=== PATIENT | male | born 1955 | race Caucasian/White ===

== ENCOUNTER → 2021-12-11 | Outpatient (CLI) | payer MEDICARE, MEDICAID ==
--- NOTE | 2021-12-11 19:00 | Diagnostic Imaging Report ---
INDICATION: Bilateral knee pain. COMPARISON: 10/22/2021. FINDINGS: Multiple radiographic views of the bilateral knees were obtained. LEFT KNEE: There is no acute fracture or dislocation. Small suprapatellar joint effusion is noted. Osseous structures are intact. There are mild osteoarthritic changes. This consists of joint space narrowing with osteophyte formations. No unexpected radiopaque foreign bodies are seen. RIGHT KNEE: There is no acute fracture or dislocation. Osseous structures are intact. There are moderate osteoarthritic changes of the right knee. This consists of joint space narrowing, greatest involving the medial tibial femoral compartment. There is also associated sclerotic remodeling of the articular surfaces with osteophyte formations. Suprapatellar joint effusion is noted. IMPRESSION: 1. Bilateral joint effusions, but no evidence of acute fracture or dislocation of either knee. 2. Bilateral osteoarthritis, right greater than left. Dictated by: Dictated on workstation # [id number]
== END ==
LOC: ORTHO 10:58
PROVIDERS: ATTEND Orthopaedic Surgery
DX: M17.0 Bilateral primary osteoarthritis of knee (principal)
CPT/HCPCS: 73564; G0463; 99203

== ENCOUNTER 2021-12-18 05:33 | Outpatient (CLI) | payer MEDICARE, MEDICAID ==
[~2021-12-18] VITALS: Ht 177.8 cm; Wt 85.7 kg
[2021-12-18 12:24] VITALS: BP 107/72
[2021-12-18 12:53] LABS: BILIRUBIN,URINE NEGATIVE (NEGATIVE); CLARITY,URINE CLEAR; COLOR,URINE YELLOW; GLUCOSE, URINE (UA) NEGATIVE (NEGATIVE); KETONES,URINE NEGATIVE (NEGATIVE); LEUKOCYTE ESTERASE ,URINE NEGATIVE (NEGATIVE); NITRITE,URINE NEGATIVE (NEGATIVE); PH,URINE 5.5 (5-9); PROTEIN,URINE NEGATIVE (NEGATIVE)
[2021-12-18 12:54] LABS: BASOPHILS # (AUTO) 0.1 10^3/uL (0.0-0.1); BASOPHILS % (AUTO) 1 % (0-10); EOSINOPHILS # (AUTO) 0.1 10^3/uL (0.0-0.3); EOSINOPHILS % (AUTO) 1 % (0-10); HEMATOCRIT 33 % (40-54); HEMOGLOBIN 10.5 g/dL (13.3-17.7); LYMPHOCYTES # (AUTO) 2.9 10^3/uL (1.0-4.0); LYMPHOCYTES % (AUTO) 23 % (12-44); MEAN CORPUSCULAR HEMOGLOBIN 20 pg (25-34); MEAN CORPUSCULAR HGB CONC 32 g/dL (32-36); MEAN CORPUSCULAR VOLUME 64 fL (80-99); MEAN PLATELET VOLUME 10.4 fL (9.0-12.2); MONOCYTES # (AUTO) 0.8 10^3/uL (0.0-1.0); MONOCYTES % (AUTO) 7 % (0-12); NEUTROPHILS # (AUTO) 8.9 10^3/uL (1.8-7.8); NEUTROPHILS % (AUTO) 69 % (42-75); PLATELET COUNT 278 10^3/uL (130-400); WHITE BLOOD COUNT 12.9 10^3/uL (4.3-11.0)
[2021-12-18 13:03] LABS: PROTHROMBIN TIME PATIENT 13.8 SEC (12.2-14.7)
[2021-12-18 13:10] LABS: BACTERIA,URINE NEGATIVE /HPF; CALCIUM 9.1 MG/DL (8.5-10.1); CREATININE SERUM 1.26 MG/DL (0.60-1.30); POTASSIUM 3.9 MMOL/L (3.6-5.0)
--- NOTE | 2021-12-18 15:43 | Diagnostic Imaging Report ---
INDICATION: Preop right knee arthroplasty, degenerative joint disease PA and lateral chest Heart size and pulmonary vascularity are normal. Lungs are clear. There are no effusions or pneumothoraces. IMPRESSION: No acute abnormalities in the chest. Dictated by: Dictated on workstation # [id number]
[2021-12-18] MEDS ORDERED: FEBU40TA PO (16:17)
[2021-12-18] MEDS ORDERED: CHOL10007 PO (16:17)
[2021-12-18] MEDS ORDERED: ASPI-992 PO (16:17)
[2021-12-18] MEDS ORDERED: GBPN600T PO (16:17)
[2021-12-18] MEDS ORDERED: TRZ50T PO (16:17)
[2021-12-18] MEDS ORDERED: OMEP20CA18 PO (16:17)
[2021-12-18] MEDS ORDERED: PRED5TAB PO (16:17)
[2021-12-18] MEDS ORDERED: LISI2.5T13 PO (16:17)
[2021-12-18] MEDS ORDERED: BUPR150T24 PO (16:17)
[2021-12-18] MEDS ORDERED: TERA2CAP4 PO (16:17)
== END 2021-12-18 16:22 ==
LOC: PREOP 05:33
PROVIDERS: ATTEND Orthopaedic Surgery
DX: Z01.818 Encounter for other preprocedural examination (principal); M17.11 Unilateral primary osteoarthritis, right knee
CPT/HCPCS: 36415; 71046; 80048; 81000; 85025; 85610; 85730; 87081; 93005

== ENCOUNTER → 2022-01-03 | Outpatient (CLI) | payer MEDICARE, MEDICAID ==
[~2022-01-03] MED LIST: ASPI-992 PO; BUPR150T24 PO; CHOL10007 PO; FEBU40TA PO; GBPN600T PO; LISI2.5T13 PO; OMEP20CA18 PO; PRED5TAB PO; TERA2CAP4 PO; TRZ50T PO
== END ==
LOC: ORTHO 11:30
PROVIDERS: ATTEND Orthopaedic Surgery
DX: M17.0 Bilateral primary osteoarthritis of knee (principal)

== ENCOUNTER 2022-02-05 09:36 | Outpatient (RCR) | payer MEDICARE, MEDICAID ==
[2022-02-05 11:20] LABS: ABSOLUTE RETIC # 118 10e9/uL (24-90); BASOPHILS # (AUTO) 0.1 10^3/uL (0.0-0.1); BASOPHILS % (AUTO) 0 % (0-10); EOSINOPHILS # (AUTO) 0.1 10^3/uL (0.0-0.3); EOSINOPHILS % (AUTO) 1 % (0-10); HEMATOCRIT 35 % (40-54); HEMOGLOBIN 11.1 g/dL (13.3-17.7); LYMPHOCYTES % (AUTO) 15 % (12-44); MEAN CORPUSCULAR HEMOGLOBIN 20 pg (25-34); MEAN CORPUSCULAR HGB CONC 32 g/dL (32-36); MEAN CORPUSCULAR VOLUME 64 fL (80-99); MEAN PLATELET VOLUME 10.1 fL (9.0-12.2); MONOCYTES # (AUTO) 0.9 10^3/uL (0.0-1.0); MONOCYTES % (AUTO) 7 % (0-12); NEUTROPHILS # (AUTO) 9.7 10^3/uL (1.8-7.8); NEUTROPHILS % (AUTO) 77 % (42-75); PLATELET COUNT 298 10^3/uL (130-400); RETICULOCYTE % 2.17 % (0.50-2.40); WHITE BLOOD COUNT 12.7 10^3/uL (4.3-11.0)
== END 2022-02-13 | disposition home or self-care (01) ==
LOC: ONC 09:36
PROVIDERS: ATTEND Internal Medicine Hematology & Oncology
DX: D64.9 Anemia, unspecified (principal)
CPT/HCPCS: 82607; 82728; 83540; 83550; 83615; 85025; 85045; G0463; 36415; 99204

== ENCOUNTER 2022-05-08 09:55 | Outpatient (RCR) | payer MEDICARE, MEDICAID ==
[2022-05-08 10:11] LABS: BASOPHILS # (AUTO) 0.1 10^3/uL (0.0-0.1); BASOPHILS % (AUTO) 1 % (0-10); EOSINOPHILS # (AUTO) 0.4 10^3/uL (0.0-0.3); EOSINOPHILS % (AUTO) 3 % (0-10); HEMATOCRIT 34 % (40-54); HEMOGLOBIN 10.7 g/dL (13.3-17.7); LYMPHOCYTES # (AUTO) 3.6 10^3/uL (1.0-4.0); LYMPHOCYTES % (AUTO) 28 % (12-44); MEAN CORPUSCULAR HEMOGLOBIN 20 pg (25-34); MEAN CORPUSCULAR HGB CONC 32 g/dL (32-36); MEAN CORPUSCULAR VOLUME 62 fL (80-99); MEAN PLATELET VOLUME 9.8 fL (9.0-12.2); MONOCYTES # (AUTO) 1.2 10^3/uL (0.0-1.0); MONOCYTES % (AUTO) 9 % (0-12); NEUTROPHILS # (AUTO) 7.9 10^3/uL (1.8-7.8); NEUTROPHILS % (AUTO) 60 % (42-75); PLATELET COUNT 263 10^3/uL (130-400); WHITE BLOOD COUNT 13.2 10^3/uL (4.3-11.0)
== END 2022-05-14 | disposition home or self-care (01) ==
LOC: ONC 09:55
PROVIDERS: ATTEND Internal Medicine Hematology & Oncology
DX: D64.9 Anemia, unspecified (principal)
CPT/HCPCS: 36415; 82728; 83020; 83540; 83550; 85025

== ENCOUNTER → 2022-05-08 | Outpatient (CLI) | payer MEDICARE, MEDICAID | LOC: ORTHO 13:07 | PROVIDERS: ATTEND Orthopaedic Surgery | DX: Z01.818 Encounter for other preprocedural examination (principal); M17.0 Bilateral primary osteoarthritis of knee | CPT/HCPCS: 99213 ==

== ENCOUNTER → 2022-05-09 | Outpatient (CLI) | payer MEDICARE, MEDICAID ==
--- NOTE | 2022-05-09 09:36 | Diagnostic Imaging Report ---
Exam: CT right knee without contrast. Date: May 09, 2022. Indication: 66-year-old male, chronic right knee pain. Surgical planning. Comparison: Bilateral knee radiographs December 11, 2021. Technique: Axial CT images of the knee without contrast were obtained. Coronal and sagittal reformats were obtained and provided. Axial CT images at the level of the hip and ankle were also obtained for measurements of femoral version and tibial torsion and surgical planning. All CT scans use one or more of the following dose optimizing techniques: automated exposure control, MA and/or KvP adjustment based on patient size and exam type or iterative reconstruction. Findings: There is diverticulosis without evidence of acute diverticulitis. There is severe medial and patellofemoral compartment joint space loss. There are tricompartmental osteophytes including central osteophytes associated with all 3 compartments. There is a moderate to large knee joint effusion. There is no acute fracture. There is no aggressive bone lesion. Impression: 1. Severe tricompartmental osteoarthritis of the right knee with moderate to large knee joint effusion most notably involving the medial and patellofemoral compartments. Dictated by: Dictated on workstation # [id number]
== END ==
LOC: RAD 07:37
PROVIDERS: ATTEND Orthopaedic Surgery
DX: M17.11 Unilateral primary osteoarthritis, right knee (principal); M25.461 Effusion, right knee
CPT/HCPCS: 73700

== ENCOUNTER 2022-06-03 05:30 | Outpatient (CLI) | payer MEDICARE, MEDICAID ==
[~2022-06-03] VITALS: Ht 177.8 cm; Wt 89.8 kg
[2022-06-03 09:00] VITALS: BP 106/61
[2022-06-03 09:11] LABS: BASOPHILS # (AUTO) 0.1 10^3/uL (0.0-0.1); BASOPHILS % (AUTO) 1 % (0-10); EOSINOPHILS # (AUTO) 0.5 10^3/uL (0.0-0.3); EOSINOPHILS % (AUTO) 5 % (0-10); HEMATOCRIT 35 % (40-54); HEMOGLOBIN 11.3 g/dL (13.3-17.7); LYMPHOCYTES % (AUTO) 27 % (12-44); MEAN CORPUSCULAR HEMOGLOBIN 20 pg (25-34); MEAN CORPUSCULAR HGB CONC 32 g/dL (32-36); MEAN CORPUSCULAR VOLUME 62 fL (80-99); MONOCYTES % (AUTO) 9 % (0-12); NEUTROPHILS # (AUTO) 6.4 10^3/uL (1.8-7.8); NEUTROPHILS % (AUTO) 59 % (42-75); PLATELET COUNT 277 10^3/uL (130-400)
[2022-06-03 09:26] LABS: BILIRUBIN,URINE NEGATIVE (NEGATIVE); CLARITY,URINE CLEAR; COLOR,URINE YELLOW; GLUCOSE, URINE (UA) NEGATIVE (NEGATIVE); KETONES,URINE NEGATIVE (NEGATIVE); LEUKOCYTE ESTERASE ,URINE NEGATIVE (NEGATIVE); NITRITE,URINE NEGATIVE (NEGATIVE); PH,URINE 6.5 (5-9); PROTEIN,URINE TRACE (NEGATIVE)
[2022-06-03 09:26] LABS: CALCIUM 9.8 MG/DL (8.5-10.1); CREATININE SERUM 1.32 MG/DL (0.60-1.30); POTASSIUM 3.8 MMOL/L (3.6-5.0)
[2022-06-03 09:34] LABS: SMEAR SCAN COMMENT YES
[2022-06-03 09:59] LABS: BACTERIA,URINE NEGATIVE /HPF; WBC,URINE RARE /HPF
== END 2022-06-03 10:08 ==
LOC: PREOP 05:30
PROVIDERS: ATTEND Orthopaedic Surgery
DX: Z01.818 Encounter for other preprocedural examination (principal); M17.11 Unilateral primary osteoarthritis, right knee
CPT/HCPCS: 36415; 80048; 81000; 85025; 87081

== ENCOUNTER 2022-06-10 06:04 | Day surgery (SDC) | payer MEDICARE, MEDICAID ==
[2022-06-10] VITALS (12 sets, daily range): BP systolic 107–136; BP diastolic 67–82
[~2022-06-10] VITALS: Ht 177.8 cm; Wt 89.8 kg
[2022-06-10] MEDS: LACTATED RINGERS 1,000 ML IV PRN ×2 (06:22→07:55)
[2022-06-10] MEDS ORDERED: ceFAZolin INJECTION 2,000 MG in NS (IVPB) 50 ML IV ONE (06:30)
[2022-06-10] MEDS ORDERED: CATHETER FLUSH 10 ML SYR IVP PRN (06:30)
[2022-06-10] MEDS ORDERED: ROPIVACAINE 5MG/ML 30ML VIAL ONE (06:39)
[2022-06-10] MEDS ORDERED: MIDAZOLAM 2 MG/2 ML (VERSED) VIAL ONE (06:39)
[2022-06-10] MEDS ORDERED: LIDOCAINE PF 2% 5 ML (XYLOCAINE) VIAL ONE ×2 (06:39→07:00)
[2022-06-10] MEDS ORDERED: proPOfol 200 MG/20 ML (DIPRIVAN) VIAL IV ONE (07:00)
[2022-06-10] MEDS ORDERED: fentaNYL INJ 100 MCG/2 ML AMP ONE ×2 (07:00→09:43)
[2022-06-10] MEDS ORDERED: ONDANSETRON 4 MG/2 ML (SDV) Z0FRAN ONE (07:00)
[2022-06-10] MEDS ORDERED: GLYCOPYRROLATE 0.2 MG/ML (ROBINUL) 2 ML VIAL ONE (07:00)
[2022-06-10] MEDS ORDERED: NEOSTIGMINE (BLOXIVERZ ) 1 MG/1ML 10 ML VIAL ONE (07:02)
[2022-06-10] MEDS ORDERED: TRANEXAMIC ACID 100 MG/ML 10 ML INJECTION ONE (07:38)
[2022-06-10] MEDS ORDERED: PHENYLEPHRINE 100 MCG/ML 10 ML (ANESTHESIA) SYR ONE (07:44)
[2022-06-10] MEDS ORDERED: SEVOFLURANE (ULTANE) 15 ML INHAL SOLN ONE (09:46)
--- NOTE | 2022-06-10 10:11 | Operative Report - Ortho ---
Operative Report Surgeon (s)/Fpga Design Engineer (s) Surgeon MARC HAND MD Fpga Design Engineer n/a Pre-Operative Diagnosis RIGHT KNEE PRIMARY OSTEOARTHRITIS Post-Operative Diagnosis same Operative Report Date of Procedure: Jun 10, 2022 Name of Procedure Performed: Robotic Assisted Right Total Knee Arthroplasty Description & Findings After obtaining informed consent and marking the patient in the preoperative holding area, the patient did receive IV antibiotics. Patient was taken to the operating room and anesthesia was induced. Surgical timeout was taken. The right lower extremity was prepped and draped in the usual sterile fashion. Incision was made and carried down to fascia. Arthrotomy was performed on the medial side of the patella. Patella was retracted laterally and knee was flexed. Found to have circumferential osteophtye around the distal femur as well as exposed bone in the medial compartment. ACL and anterior horns of the menisci were removed. 3.2 mm pins were placed in the medial femoral condyle for the femoral array and checkpoint was placed next to the pins. 3.2 mm pins were placed in the proximal tibia and checkpoint was placed there as well. Arrays were placed and tightened into position. The femur and tibia were then registered. Osteophytes were removed. The knee was then tensioned with varus and valgus stress in extension and flexion. Measurements were captured and adjustments were made to the preoperative plan to balance the flexion and extension gaps at 18 mm. Robotic arm was brought into position and all femoral cuts as well as the tibial cut were performed. Bone blocks were removed. [place]ina staff research scientist was placed and the remainder of the mensici as well as posterior osteophytes were removed. The knee was trialed with a size 5 femur and a size 6 tibia with a 9 mm poly trial. It was found to come out to full extension and flexed beyond 120 degrees. It was stable to varus and valgus stress throughout its range of motion. This was accepted. Knee was brought out into extension and the patella was prepared for an inset patellar button. Osteophytes were removed from around the perimeter of the patella. Patella tracked well through the trochlear groove of the femur. Lug holes were drilled in the distal femur. Trial implants were removed. Tibial tray was pinned and punched. Tibial press fit guide was placed and holes were drilled. The cut bone surfaces were lavaged with pulsatile normal saline. Implants were opened and assembled on the back table. A size 6 press fit tibial component was impacted into place. A size 5 press fit femoral component was impacted into place. Tibial tray was lavaged with saline. A 9 mm thick polyethylene component was locked into placed and the locking mechanism was checked. Knee was brought into extension. Press fit patella component was clamped into place. Betadine soak was performed and then, the knee was irrigated with normal saline. The knee was once again trialed; found to come to full extension, flexed beyond 120 degrees, and was stable to varus and valgus stress. Tourniquet was dropped and electrocautery was used for hemostasis. Fascial layer was closed with #2 Stratafix. The subcutaneous layer was closed with 2-0 Vicryl. The skin was c losed with a running subcuticular 3-0 V-loc. Wound was dressed with steri- strips, xeroform, 4x4s, ABD, webril, and LIYAH wrap. Patient tolerated the procedure well and was stable to the recovery room. Anesthesia Type General Estimated Blood Loss 100 ml Specimen(s) collected/removed None MARC HAND MD Jun 10, 2022 10:11
[2022-06-10] MEDS ORDERED: MILK OF MAGNESIA 400 MG/5 ML 30 ML UDC PO PRN (10:15)
[2022-06-10] MEDS ORDERED: morphine INJ 10 MG/ML 1ML (SYR OR VIAL) IVP ONE (10:15)
[2022-06-10] MEDS ORDERED: ONDANSETRON 4 MG/2 ML (SDV) Z0FRAN IVP PRN (10:15)
[2022-06-10] MEDS ORDERED: ACETAMINOPHEN 500 MG TAB (TYLENOL) PO PRN (10:15)
[2022-06-10] MEDS ORDERED: ONDANSETRON 4 MG/2 ML (SDV) Z0FRAN IV PRN (10:15)
[2022-06-10] MEDS ORDERED: HYDROmorphone 2 MG/ML VIAL (DILAUDID) IV ONE (10:15)
[2022-06-10] MEDS ORDERED: BISACODYL 5 MG (DULCOLAX) TABLET PO PRN (10:15)
[2022-06-10] MEDS ORDERED: morphine INJ 10 MG/ML 1ML (SYR OR VIAL) ONE (10:18)
--- NOTE | 2022-06-10 10:57 | Diagnostic Imaging Report ---
Indication: Right knee surgery AP and lateral views of right knee are obtained. Overlying material limits fine bony detail however total knee arthroplasty device appears to be in good position. There is no evidence of fracture. No malalignment is seen. There is gas and fluid in the knee joint. Impression: No evidence of immediate complication post recent total right knee arthroplasty. Dictated by: Dictated on workstation # [id number]
[2022-06-10] MEDS: NS IV 1000 ML 1,000 ML IV SCH ×2 (11:38→12:07)
[2022-06-10] MEDS ORDERED: GABAPENTIN 600 MG (NEURONTIN) TAB PO SCH (13:00)
[2022-06-10] MEDS: morphine INJ 4 MG/ML 1 ML (VIAL/SYRINGE) IVP PRN ×3 (13:50→23:53)
--- NOTE | 2022-06-10 13:53 | Physical Therapy Evaluation ---
PT Evaluation-General Medical Diagnosis Admission Date June 10, 2022 Medical Diagnosis: right knee OA Onset Date: Jun 10, 2022 Therapy Diagnosis Therapy Diagnosis: impaired mobility Precautions Precautions/Isolations: Standard Precautions Referral Physician: Te Reason for Referral: Evaluation/Treatment Medical History Current History s/p elective right TKR Reviewed History: Yes Social History Home: Single Level Prior Prior Level of Function SCALE: Activities may be completed with or without assistive devices. 1-Pfyqcqanyy-tbysljr completes the activity by him/herself with no assistance from a helper. 5-Set-up or Clean-up Assistance-helper sets up or cleans up; patient completes activity. [place] assists only prior to or following the activity. 4-Supervision or Touching Assistance-helper provides verbal cues and/or touching/steadying and/or contact guard assistance as patient completes activity. Assistance may be provided throughout the activity or intermittently. 3-Partial/Moderate Assistance-helper does LESS THAN HALF the effort. [place] lifts, holds or supports trunk or limbs, but provides less than half the effort. 2-Substantial/Maximal Assistance-helper does MORE THAN HALF the effort. [place] lifts or holds trunk or limbs and provides more than half the effort. 3-Kskmxgxuy-gquoxt does ALL the effort. Patient does none of the effort to complete the activity. Or, the assistance of 2 or more helpers is required for the patient to complete the activity. If activity was not attempted, code reason: 7-Patient Refused. 9-Not Applicable-not attempted and the patient did not perform the activity before the current illness, exacerbation or injury. 10-Not Attempted due to Environmental Limitations-(lack of equipment, weather restraints, etc.). 88-Not Attempted due to Medical Conditions or Safety Concerns. Bed Mobility: 6 Transfers (B,C,W/C): 6 Gait: 6 Stairs: 6 Indoor Mobility (Ambulation): Independent Stairs: Independent Prior Devices Use: None PT Evaluation-Current Subjective Patient rates right knee pain 8/10 with RN present to issue pain medication Pain Numeric Pain Scale: 8 Location: Right Location Body Site: Knee Pain Description: Acute Objective Patient Orientation: Normal For Age Attachments: Oxygen, Doyle Catheter, Polar Pack, IV ROM/Strength ROM Lower Extremities left LE WFL/right knee AROM 0-70 degrees Strength Lower Extremities left LE 5/5; right LE 4-/5 grossly Integumentary/Posture Bowel Incontinence: No Bladder Incontinence: Doyle Cath Posture WFL Neuromuscular (Tone, Coordination, Reflexes) grossly intact Sensory Vision: Functional Hearing: Impaired Transfers Lying to Sitting/Side of Bed(Q: 4 Sit to Stand (QC): 4 Chair/Rnn-fu-Lyhsx Xfer(QC): 4 Gait Mode of Locomotion: Walk Anticipated Mode of Locomotion: Walk Walk 10 feet (QC): 4 Walk 50 ft with 2 Turns(QC): 4 Walk 150 ft (QC): 4 Distance: 150' Gait Assistive Device: FWW Comments/Gait Description slow, antalgic Balance Sitting Static: Normal Sitting Dynamic: Normal Standing Static: Fair Standing Dynamic: Fair Assessment/Needs Patient will benefit from skilled PT to address functional strength and mobility to improve current LOF to safely return to home at maximum LOF. Rehab Potential: Fair PT Bike Designer Goals Half-Way Goals PT Bike Designer Goals Time Frame: Jun 22, 2022 Roll Left & Right (QC): 6 Sit to Lying (QC): 6 Lying-Sitting on Side/Bed(QC): 6 Sit to Stand (QC): 6 Chair/Psi-ss-Xqcix Xfer(QC): 6 Toilet Transfer (QC): 6 Walk 10 feet (QC): 6 Walk 50ft with 2 Turns (QC): 6 Walk 150 ft (QC): 6 PT Plan Problem List Problem List: Activity Tolerance, Functional Strength, Safety, Gait, Transfer, ROM Treatment/Plan Treatment Plan: Continue Plan of Care Treatment Plan: Education, Functional Activity Anali, Functional Strength, Gait, Safety, Therapeutic Exercise, Transfers Treatment Duration: Jun 22, 2022 Frequency: 11 times per week Estimated Hrs Per Day: .5 hour per day Patient and/or Family Agrees t: Yes Time Time In: 1320 Time Out: 1341 DATE: Jun 10, 2022 Total Billed Treatment Time: 21 Total Billed Treatment 1 visit EVMod 21 min CLINTON SANTOYO PT Jun 10, 2022 13:53
[2022-06-10] MEDS ORDERED: PATIENT MAY USE OWN MED,SINGLE MED PO SCH (15:15)
[2022-06-10] MEDS: ceFAZolin INJECTION 2,000 MG in NS (IVPB) 50 ML IV SCH (18:05)
[2022-06-10] MEDS: ASPIRIN E.C. 81 MG (ECOTRIN) TAB PO SCH (18:05)
[2022-06-10] MEDS: TERAZOSIN 1 MG CAP (HYTRIN) PO SCH (20:37)
[2022-06-10] MEDS: CELECOXIB 100 MG (CeleBREX) CAP PO SCH (20:37)
[2022-06-10] MEDS: traZODone 50 MG (DESYREL) TAB PO SCH (20:37)
[2022-06-10] MEDS: GABAPENTIN 600 MG (NEURONTIN) TAB PO SCH (20:37)
[2022-06-10] MEDS: lisINopril 5 MG (PRINIVIL) TABLET PO SCH (20:38)
[2022-06-10] MEDS: DOCUSATE SODIUM 100 MG (COLACE) CAP PO SCH (20:38)
[2022-06-10] MEDS ORDERED: PANTOPRAZOLE 20 MG TABLET (PROTONIX) PO ONE (21:00)
[2022-06-10] MEDS ORDERED: traZODone 50 MG (DESYREL) TAB PO SCH (21:00)
[2022-06-10] MEDS ORDERED: ceFAZolin INJECTION 2,000 MG in NS (IVPB) 50 ML IV SCH (21:00)
[2022-06-10] MEDS: CALCIUM CARBONATE 500 MG (TUMS) TAB.CHEW PO PRN ×2 (21:10→23:53)
[2022-06-11] MEDS: ceFAZolin INJECTION 2,000 MG in NS (IVPB) 50 ML IV SCH (01:23)
[2022-06-11 04:00] VITALS: BP 100/64
[2022-06-11 05:13] LABS: HEMOGLOBIN 9.3 g/dL (13.3-17.7)
[2022-06-11] MEDS: CALCIUM CARBONATE 500 MG (TUMS) TAB.CHEW PO PRN ×2 (05:21→16:28)
[2022-06-11] MEDS: MULTIVIT W/MINERALS TAB (THERAGRAN M) PO SCH (05:21)
[2022-06-11] MEDS ORDERED: predniSONE 5 MG TAB PO PRN (07:00)
[2022-06-11 07:45] VITALS: BP 109/58
[2022-06-11] MEDS: FEBUXOSTAT 40 MG TABLET PO SCH (08:01)
[2022-06-11] MEDS: PANTOPRAZOLE 20 MG TABLET (PROTONIX) PO SCH ×2 (08:02→08:21)
[2022-06-11] MEDS: DOCUSATE SODIUM 100 MG (COLACE) CAP PO SCH ×3 (08:02→19:50)
[2022-06-11] MEDS: CELECOXIB 100 MG (CeleBREX) CAP PO SCH ×2 (08:02→19:50)
[2022-06-11] MEDS: buPROPion SR 150 MG (WELLBUTRIN SR) TAB PO SCH (08:02)
[2022-06-11] MEDS: ASPIRIN E.C. 81 MG (ECOTRIN) TAB PO SCH ×3 (08:02→17:16)
[2022-06-11] MEDS: GABAPENTIN 600 MG (NEURONTIN) TAB PO SCH ×3 (08:03→19:50)
[2022-06-11] MEDS: morphine INJ 4 MG/ML 1 ML (VIAL/SYRINGE) IVP PRN ×2 (08:06→16:26)
--- NOTE | 2022-06-11 08:16 | Anesthesia-General Post-Op ---
General Patient Condition Mental Status/LOC: Same as Preop Cardiovascular: Satisfactory Nausea/Vomiting: Absent Respiratory: Satisfactory Pain: Controlled Complications: Absent Post Op Complications Complications None Follow Up Care/Instructions Patient Instructions None needed. Anesthesia/Patient Condition Patient Condition Patient is doing well, no complaints, stable vital signs, no apparent adverse anesthesia problems. No complications reported per nursing. ERNESTINA TREVINO CRNA Jun 11, 2022 08:16
[2022-06-11] MEDS ORDERED: lisINopril 5 MG (PRINIVIL) TABLET PO SCH (09:00)
[2022-06-11] MEDS ORDERED: NON-FORMULARY MEDICATION 1 EA EA (Terazosin HCl 2 MG) PO SCH (09:00)
[2022-06-11] MEDS ORDERED: NON-FORMULARY MEDICATION 1 EA EA (Bupropion HCl (Bupropion Xl) 150 MG) PO SCH (09:00)
[2022-06-11] MEDS ORDERED: NON-FORMULARY MEDICATION 1 EA EA (Lisinopril 2.5 MG) PO SCH (09:00)
[2022-06-11] MEDS ORDERED: OMEPRAZOLE 20 MG (PriLOSEC) CAP NON-FORMULARY PO SCH (09:00)
--- NOTE | 2022-06-11 10:36 | Progress Note - Ortho ---
Progress Note Subjective Date of Exam 06/11/22 Chief Complaint POD #1 R TKA HPI/Events since last exam having some difficulty with pain, some trouble with N/V, has been up and out of bed Review of Systems - Allergies: Coded Allergies: allopurinol (Verified Allergy, Unknown, RASH, 06/03/22) Home Meds Reported Medications Cholecalciferol (Vitamin D3) (Vitamin D3) 25 Mcg (1000 Unit) Capsule, 25 MCG PO DAILY, CAP 12/18/21 Febuxostat (Uloric) 40 Mg Tablet, 40 MG PO HS, TAB 12/18/21 Trazodone HCl (Trazodone HCl) 50 Mg Tablet, 100 MG PO HS, TAB TAKES 2 (50MG) TABS 12/18/21 Terazosin HCl (Terazosin HCl) 2 Mg Capsule, 4 MG PO HS, CAP TAKES 2 (2MG) CAPS 12/18/21 Prednisone (Prednisone) 5 Mg Tablet, 5 MG PO DAILY PRN for GOUT FLARE, TAB 12/18/21 Omeprazole (Omeprazole) 20 Mg Capsule.dr, 20 MG PO DAILY, CAP 12/18/21 Lisinopril (Lisinopril) 2.5 Mg Tablet, 2.5 MG PO HS, TAB 12/18/21 Gabapentin (Gabapentin) 600 Mg Tablet, 1200 MG PO BID, TAB TAKES 2 (600MG) TABS 12/18/21 Aspirin/Acetaminophen/Caffeine (Excedrin Extra Strength Caplet) 250 Mg-250 Mg-65 Mg Tablet, 1-2 EACH PO Q8H PRN for HEADACHE, TAB 12/18/21 Bupropion HCl (Bupropion Xl) 150 Mg Tab.er.24h, 150 MG PO DAILY, TAB 12/18/21 Objective Exam R Knee: Dressing C/D/I, +DF of ankle, no s/s of DVT Vital Signs Vital Signs Date Time Temp Pulse Resp B/P (MAP) Pulse Ox O2 Delivery O2 Flow Rate FiO2 06/11/22 08:00 97 Room Air 06/11/22 07:45 36.5 74 20 109/58 (75) 97 Room Air 06/11/22 04:00 37.4 71 18 100/64 (76) 95 Room Air 06/10/22 23:39 37.3 82 18 107/67 (80) 93 Room Air 3/27/23 20:00 36.9 76 18 136/77 (96) 96 Room Air 06/10/22 20:00 Room Air 06/10/22 16:57 36.6 77 18 132/82 (99) 95 Room Air 06/10/22 11:15 36.3 77 18 134/73 (93) 95 Nasal Cannula 2.00 06/10/22 11:05 Room Air 06/10/22 11:00 36.1 16 124/72 (89) 94 Room Air 06/10/22 10:50 Nasal Cannula 2.00 06/10/22 10:50 16 120/68 (85) 92 Nasal Cannula 2.00 06/10/22 10:40 18 130/70 (90) 96 2.00 06/10/22 10:35 Nasal Cannula 4.00 I & O 06/11/22 07:00 Intake Total 3700 ml Output Total 1735 ml Balance 1965 ml Lab Results Laboratory Tests 06/11/22 05:05: Hemoglobin 9.3L, Hematocrit 29L Imaging 2 views of the right knee dated 06/10/22 were reviewed from PACS and demonstrated total knee arthroplasty with components in good alignment and no evidence of complication Assessment and Plan Assessment Right Knee Primary Osteoarthritis s/p TKA Problem List Right Knee Primary Osteoarthritis s/p TKA Plan PT/OT DVT Prophylaxis Home with Home health tomorrow Final Diagonsis Right Knee Primary Osteoarthritis s/p TKA Level of the visit: Level 3 (global) MARC HAND MD Jun 11, 2022 10:36
--- NOTE | 2022-06-11 10:47 | Physical Therapy Daily Note ---
PT Daily Note-Current Subjective Patient agrees to PT. Pain Numeric Pain Scale: 7 Location: Right Location Body Site: Knee Pain Description: Acute Comment: with meds issued Section J - Health Conditions 1. Rarely or not at all 2. Occasionally 3. Frequently 4. Almost constantly 8. Unable to answer Pain Effect on Sleep: 2 Pain Interference with Therapy: 1 Pain Interference w/Day-to-Day: 2 Mental Status Patient Orientation: Normal For Age Transfers SCALE: Activities may be completed with or without assistive devices. 3-Crqwxwmotc-hxqucnq completes the activity by him/herself with no assistance from a helper. 5-Set-up or Clean-up Assistance-helper sets up or cleans up; patient completes activity. [place] assists only prior to or following the activity. 4-Supervision or Touching Assistance-helper provides verbal cues and/or t ouching/steadying and/or contact guard assistance as patient completes activity. Assistance may be provided throughout the activity or intermittently. 3-Partial/Moderate Assistance-helper does LESS THAN HALF the effort. [place] lifts, holds or supports trunk or limbs, but provides less than half the effort. 2-Substantial/Maximal Assistance-helper does MORE THAN HALF the effort. [place] lifts or holds trunk or limbs and provides more than half the effort. 5-Egyzqmzxt-orrmvk does ALL the effort. Patient does none of the effort to complete the activity. Or, the assistance of 2 or more helpers is required for the patient to complete the activity. If activity was not attempted, code reason: 7-Patient Refused. 9-Not Applicable-not attempted and the patient did not perform the activity before the current illness, exacerbation or injury. 10-Not Attempted due to Environmental Limitations-(lack of equipment, weather restraints, etc.). 88-Not Attempted due to Medical Conditions or Safety Concerns. Lying to Sitting/Side of Bed(Q: 6 Sit to Stand (QC): 6 Chair/Msq-hw-Dqdgh Xfer(QC): 6 Gait Training Distance: 300' Walk 10 feet (QC): 5 Walk 50 ft with 2 Turns(QC): 5 Walk 150 ft (QC): 5 Gait Assistive Device: FWW VC's for heel/toe gait sequence right LE with knee flexion Exercises Supine Ex: Ankle pumps, Quad Set, Heel Slides, Straight leg raise Supine Reps: 15 Seated Therapy Exercises: Long arc quads Seated Reps: 15 Assessment Patient improving with treatment plan. Right knee flexion AROM 0-90 degrees. Patient up in recliner with needs met. PT instructed patient and RN for patient to ambulate PRN in hallway independently. Both voice understanding. PT Surplus Property Disposal Agent Goals Surplus Property Disposal Agent Goals PT Surplus Property Disposal Agent Goals Time Frame: Jun 22, 2022 Roll Left & Right (QC): 6 Sit to Lying (QC): 6 Lying-Sitting on Side/Bed(QC): 6 Sit to Stand (QC): 6 Chair/Bpr-ix-Yrxnn Xfer(QC): 6 Toilet Transfer (QC): 6 Walk 10 feet (QC): 6 Walk 50ft with 2 Turns (QC): 6 Walk 150 ft (QC): 6 PT Plan Treatment/Plan Treatment Plan: Continue Plan of Care Treatment Plan: Education, Functional Activity Anali, Functional Strength, Gait, Safety, Therapeutic Exercise, Transfers Treatment Duration: Jun 22, 2022 Frequency: 11 times per week Estimated Hrs Per Day: .5 hour per day Patient and/or Family Agrees t: Yes Time Time In: 930 Time Out: 954 DATE: Jun 11, 2022 Total Billed Treatment Time: 24 Total Billed Treatment 1 visit EX 10 min GT 14 min CLINTON SANTOYO PT Jun 11, 2022 10:47
--- NOTE | 2022-06-11 11:05 | Occupational Ther Daily Note ---
OT Current Status-Daily Note Subjective UP in recliner, c/o of acid reflux, agreeable to OT Mental Status/Objective Patient Orientation: Person, Place, Time, Situation, Normal For Age Attachments: IV (port only) ADL-Treatment Therapy Code Descriptions/Definitions Functional [place] Measure: 0=Not Assessed/NA 4=Minimal Assistance 1=Total Assistance 5=Supervision or Setup 2=Maximal Assistance 6=Modified [place] 3=Moderate Assistance 7=Complete IndependenceSCALE: Activities may be completed with or without assistive devices. 9-Tpgmffjsbh-cycvwxo completes the activity by him/herself with no assistance from a helper. 5-Set-up or Clean-up Assistance-helper sets up or cleans up; patient completes activity. [place] assists only prior to or following the activity. 4-Supervision or Touching Assistance-helper provides verbal cues and/or touching/steadying and/or contact guard assistance as patient completes activity. Assistance may be provided throughout the activity or intermittently. 3-Partial/Moderate Assistance-helper does LESS THAN HALF the effort. [place] lifts, holds or supports trunk or limbs, but provides less than half the effort. 2-Substantial/Maximal Assistance-helper does MORE THAN HALF the effort. [place] lifts or holds trunk or limbs and provides more than half the effort. 3-Ahugggajl-xrfedz does ALL the effort. Patient does none of the effort to complete the activity. Or, the assistance of 2 or more helpers is required for the patient to complete the activity. If activity was not attempted, code reason: 7-Patient Refused. 9-Not Applicable-not attempted and the patient did not perform the activity before the current illness, exacerbation or injury. 10-Not Attempted due to Environmental Limitations-(lack of equipment, weather restraints, etc.). 88-Not Attempted due to Medical Conditions or Safety Concerns. Eating (QC): 6 Oral Hygiene (QC): 6 Shower/Bathe Self (QC): 7 (declined, sponge clothe supplied) Upper Body Dressing (QC): 6 Lower Body Dressing (QC): 6 (w/ FWW) On/Off Footwear: 6 Toileting Hygiene (QC): 6 Toilet Transfer (QC): 6 (w/ ADs) LB dressing sequence education provided Education OT Patient Education: Correct positioning, Modified ADL techniques, Progress toward Goal/Update tx plan, Purpose of tx/functional activities, Reviewed precautions, Rehab process, Safety issues, Transfer techniques, Use of adapted equipment Teaching Recipient: Patient Teaching Methods: Demonstration Response to Teaching: Return Demonstration OT Beater Room Supervisor Goals Beater Room Supervisor Goals 1=Demonstrate adherence to instructed precautions during ADL tasks. 2=Patient will verbalize/demonstrate understanding of assistive devices/modifications for ADL. 3=Patient will improve strength/tolerance for activity to enable patient to perform ADL's. OT Education/Plan Problem List/Assessment Assessment: No Skilled OT Needs ID'd Discharge Recommendations Plan/Recommendations: Discontinue OT Therapy Discharge Recommendati: Home & Family Treatment Plan/Plan of Care Treatment,Training & Education: Yes Patient would benefit from OT for education, treatment and training to promote independence in ADL's, mobility, safety and/or upper extremity function for ADL's. Plan of Care: OTHER (EVAL ONLY) Treatment Duration: Jun 11, 2022 Frequency: 1 time per week Estimated Hrs Per Day: .25 hour per day Agreement: Yes Rehab Potential: Good Following evaluation patient returned to recliner, all needs met Time Start Time: 10:20 Stop Time: 10:43 DATE: Jun 11, 2022 Total Time Billed (hr/min): 23 Billed Treatment Time 1 visit EVL, ADL 1 23 min HARLEY ASHER OT Jun 11, 2022 11:05
[2022-06-11 11:12] VITALS: BP 110/71
--- NOTE | 2022-06-11 14:15 | Physical Therapy Daily Note ---
PT Daily Note-Current Subjective Patient agrees to PT. Pain Section J - Health Conditions 1. Rarely or not at all 2. Occasionally 3. Frequently 4. Almost constantly 8. Unable to answer Pain Effect on Sleep: 2 Pain Interference with Therapy: 1 Pain Interference w/Day-to-Day: 2 Mental Status Patient Orientation: Normal For Age Transfers SCALE: Activities may be completed with or without assistive devices. 5-Vjbkddqwgo-qhaeblj completes the activity by him/herself with no assistance from a helper. 5-Set-up or Clean-up Assistance-helper sets up or cleans up; patient completes activity. Wendel assists only prior to or following the activity. 4-Supervision or Touching Assistance-helper provides verbal cues and/or touching/steadying and/or contact guard assistance as patient completes activity. Assistance may be provided throughout the activity or intermittently. 3-Partial/Moderate Assistance-helper does LESS THAN HALF the effort. Wendel lifts, holds or supports trunk or limbs, but provides less than half the effort. 2-Substantial/Maximal Assistance-helper does MORE THAN HALF the effort. Wendel lifts or holds trunk or limbs and provides more than half the effort. 6-Unprzjhgc-rziaws does ALL the effort. Patient does none of the effort to complete the activity. Or, the assistance of 2 or more helpers is required for the patient to complete the activity. If activity was not attempted, code reason: 7-Patient Refused. 9-Not Applicable-not attempted and the patient did not perform the activity before the current illness, exacerbation or injury. 10-Not Attempted due to Environmental Limitations-(lack of equipment, weather restraints, etc.). 88-Not Attempted due to Medical Conditions or Safety Concerns. Sit to Lying (QC): 6 Sit to Stand (QC): 6 Chair/Mzn-ee-Alxef Xfer(QC): 6 Exercises Supine Ex: Ankle pumps, Quad Set, Heel Slides, Straight leg raise Supine Reps: 15 Seated Therapy Exercises: Long arc quads Seated Reps: 15 Assessment Patient up ambulating independently in hallway. Right knee AROM 0-90 degrees in supine. Patient progressing with treatment plan and has been instructed to perform exercise program PRN. Patient voices understanding. Patient will dismiss to home tomorrow after PT session in a.m. PT Usp Goals Usp Goals PT Business Machine Mechanic Goals Time Frame: Jun 22, 2022 Roll Left & Right (QC): 6 Sit to Lying (QC): 6 Lying-Sitting on Side/Bed(QC): 6 Sit to Stand (QC): 6 Chair/Jlx-py-Vqalg Xfer(QC): 6 Toilet Transfer (QC): 6 Walk 10 feet (QC): 6 Walk 50ft with 2 Turns (QC): 6 Walk 150 ft (QC): 6 PT Plan Treatment/Plan Treatment Plan: Continue Plan of Care Treatment Plan: Education, Functional Activity Anali, Functional Strength, Gait, Safety, Therapeutic Exercise, Transfers Treatment Duration: Jun 22, 2022 Frequency: 11 times per week Estimated Hrs Per Day: .5 hour per day Patient and/or Family Agrees t: Yes Time Time In: 1346 Time Out: 1358 DATE: Jun 11, 2022 Total Billed Treatment Time: 12 Total Billed Treatment 1 visit EX 12 min CLINTON SANTOYO PT Jun 11, 2022 14:15
[2022-06-11 15:32] VITALS: BP 110/68
[2022-06-11] MEDS: IRON POLYSAC 150 MG CAP (NIFEREX) PO SCH (17:16)
[2022-06-11 19:26] VITALS: BP 116/70
[2022-06-11] MEDS: lisINopril 5 MG (PRINIVIL) TABLET PO SCH (19:49)
[2022-06-11] MEDS: TERAZOSIN 1 MG CAP (HYTRIN) PO SCH (19:49)
[2022-06-11] MEDS: traZODone 50 MG (DESYREL) TAB PO SCH (19:50)
[2022-06-11 23:09] VITALS: BP 95/57
[2022-06-12 03:06] VITALS: BP 96/63
[2022-06-12 05:40] LABS: HEMOGLOBIN 9.3 g/dL (13.3-17.7)
[2022-06-12] MEDS: MULTIVIT W/MINERALS TAB (THERAGRAN M) PO SCH (05:57)
[2022-06-12 08:09] VITALS: BP 105/69
[2022-06-12] MEDS: ASPIRIN E.C. 81 MG (ECOTRIN) TAB PO SCH (08:42)
[2022-06-12] MEDS: PANTOPRAZOLE 20 MG TABLET (PROTONIX) PO SCH (08:42)
[2022-06-12] MEDS: CELECOXIB 100 MG (CeleBREX) CAP PO SCH (08:42)
[2022-06-12] MEDS: GABAPENTIN 600 MG (NEURONTIN) TAB PO SCH (08:43)
[2022-06-12] MEDS: buPROPion SR 150 MG (WELLBUTRIN SR) TAB PO SCH (08:43)
[2022-06-12] MEDS: IRON POLYSAC 150 MG CAP (NIFEREX) PO SCH (08:44)
[2022-06-12] MEDS: DOCUSATE SODIUM 100 MG (COLACE) CAP PO SCH (08:44)
[2022-06-12] MEDS ORDERED: IRON150C3 PO (09:10)
[2022-06-12] MEDS ORDERED: OXC5T PO (09:10)
[2022-06-12] MEDS ORDERED: ASPI-1238 PO (09:10)
--- NOTE | 2022-06-12 09:14 | Discharge Summary ---
Discharge Summary Hospital Course Hospital Course Date of Admission: 06/10/22 Admission Diagnosis : Right Knee Primary Osteoarthritis Family Physician/Provider: Jose Lentz DO Date of Discharge: 06/12/22 Discharge Diagnosis: [ Right Knee Primary Osteoarthritis s/p TKA] Hospital Course: [Patient underwent Right TKA on 06/10/22 and was admitted to regular floor. On night of surgery, began mechanical DVT prophylaxis. On POD #1, began chemical DVT prophylaxis. Made very good progress with therapy. Had some difficulty with nausea. On POD #2, arrangements were made for outpatient therapy and was ready for discharge home. ] Labs and Pending Lab Test: Laboratory Tests 06/12/22 05:15: Hemoglobin 9.3L, Hematocrit 27L Home Meds Active Oxyir Tablet (Oxycodone HCl) 5 Mg Tab 5 Mg PO Q4H PRN 7 Days Aspirin EC (Aspirin) 81 Mg Tablet.dr 81 Mg PO BID WITH MEALS 14 Days Ferrex 150 (Iron Polysaccharide Complex) 150 Mg Iron Capsule 150 Mg PO BID WITH MEALS 15 Days Reported Vitamin D3 (Cholecalciferol (Vitamin D3)) 25 Mcg (1000 Unit) Capsule 25 Mcg PO DAILY Uloric (Febuxostat) 40 Mg Tablet 40 Mg PO HS Trazodone HCl 50 Mg Tablet 100 Mg PO HS TAKES 2 (50MG) TABS Terazosin HCl 2 Mg Capsule 4 Mg PO HS TAKES 2 (2MG) CAPS Prednisone 5 Mg Tablet 5 Mg PO DAILY PRN Omeprazole 20 Mg Capsule.dr 20 Mg PO DAILY Lisinopril 2.5 Mg Tablet 2.5 Mg PO HS Gabapentin 600 Mg Tablet 1,200 Mg PO BID TAKES 2 (600MG) TABS Excedrin Extra Strength Caplet (Aspirin/Acetaminophen/Caffeine) 250 Mg-250 Mg-65 Mg Tablet 1-2 Each PO Q8H PRN Bupropion Xl (Bupropion HCl) 150 Mg Tab.er.24h 150 Mg PO DAILY Assessment/Pt Instructions WBAT on Right Leg. Walker for assist. Dry dressing daily to right knee. Outpatient therapy orders sent to [facility]. F/U with Dr. Marc Tiwari ~2 weeks from surgery. Discharge Instructions Discharge Diet: No Restrictions Discharge Physical Examination Vital Signs Vital Signs Date Time Temp Pulse Resp B/P (MAP) Pulse Ox O2 Delivery O2 Flow Rate FiO2 06/12/22 08:09 37.3 83 18 105/69 (81) 95 Room Air 06/10/22 11:15 2.00 Extremity: Other (Right Knee: Incision C/D/I, +DF of ankle, no s/s of DVT) Allergies: Coded Allergies: allopurinol (Verified Allergy, Unknown, RASH, 06/03/22) Discharge Summary Date of Admission Date of Discharge MARC TIWARI MD Jun 12, 2022 09:14
--- NOTE | 2022-06-12 09:18 | Physical Therapy Daily Note ---
PT Daily Note-Current Subjective Patient sitting up in bed upon PT arrival, agreeable to treatment. Patient rates pain at 4-5/10 in right knee currently. Pain Section J - Health Conditions 1. Rarely or not at all 2. Occasionally 3. Frequently 4. Almost constantly 8. Unable to answer Pain Effect on Sleep: 2 Pain Interference with Therapy: 1 Pain Interference w/Day-to-Day: 2 Mental Status Patient Orientation: Person, Place, Time, Situation Transfers SCALE: Activities may be completed with or without assistive devices. 2-Xphigwreqn-lajdpuv completes the activity by him/herself with no assistance from a helper. 5-Set-up or Clean-up Assistance-helper sets up or cleans up; patient completes activity. Clinton assists only prior to or following the activity. 4-Supervision or Touching Assistance-helper provides verbal cues and/or touching/steadying and/or contact guard assistance as patient completes activity. Assistance may be provided throughout the activity or intermittently. 3-Partial/Moderate Assistance-helper does LESS THAN HALF the effort. Clinton lifts, holds or supports trunk or limbs, but provides less than half the effort. 2-Substantial/Maximal Assistance-helper does MORE THAN HALF the effort. [place] lifts or holds trunk or limbs and provides more than half the effort. 8-Ebhabboir-wpdyym does ALL the effort. Patient does none of the effort to complete the activity. Or, the assistance of 2 or more helpers is required for the patient to complete the activity. If activity was not attempted, code reason: 7-Patient Refused. 9-Not Applicable-not attempted and the patient did not perform the activity before the current illness, exacerbation or injury. 10-Not Attempted due to Environmental Limitations-(lack of equipment, weather restraints, etc.). 88-Not Attempted due to Medical Conditions or Safety Concerns. Roll Left & Right (QC): 6 Sit to Lying (QC): 6 Lying to Sitting/Side of Bed(Q: 6 Sit to Stand (QC): 6 Chair/Tdh-ul-Eqjtx Xfer(QC): 6 Toilet Transfer (QC): 6 Gait Training Does the Patient Walk?: Yes Distance: 400 feet Walk 10 feet (QC): 6 Walk 50 ft with 2 Turns(QC): 6 Walk 150 ft (QC): 6 Gait Assistive Device: FWW Stair Training Stair Training: Handrails/: 2 handrails #of Steps: 10 1 Step (curb) (QC): 4 4 Steps (QC): 4 Stairs: Pattern: Step to Exercises Supine Ex: Ankle pumps, Quad Set, Glut sets Supine Reps: 20 Seated Therapy Exercises: Long arc quads, Hip flexion, Hamstring Curls Seated Reps: 20 Assessment Current Status: Excellent Progress Patient tolerated treatment well. Demonstrates Vance with all bed mobility and transfers. Patient performs LE therapeutic exercise as listed above. Patient ambulates 400 feet with FWW, with Vance. Patient ascend s/descends 10 steps with 2 handrails with SBA. Patient in chair post treatment with all needs met, nursing notified, call light in hand. PT Detention Goals Detention Goals PT Detention Goals Time Frame: Jun 22, 2022 Roll Left & Right (QC): 6 Sit to Lying (QC): 6 Lying-Sitting on Side/Bed(QC): 6 Sit to Stand (QC): 6 Chair/Kcg-qd-Irlcd Xfer(QC): 6 Toilet Transfer (QC): 6 Walk 10 feet (QC): 6 Walk 50ft with 2 Turns (QC): 6 Walk 150 ft (QC): 6 PT Plan Treatment/Plan Treatment Plan: Continue Plan of Care Treatment Plan: Education, Functional Activity Anali, Functional Strength, Gait , Safety, Therapeutic Exercise, Transfers Treatment Duration: Jun 22, 2022 Frequency: 11 times per week Estimated Hrs Per Day: .5 hour per day Patient and/or Family Agrees t: Yes Safety Risks/Education Patient Education: Gait Training, Transfer Techniques, Steps Teaching Recipient: Patient Teaching Methods: Demonstration, Discussion Response to Teaching: Verbalize Understanding, Return Demonstration Time Time In: 844 Time Out: 910 DATE: Jun 12, 2022 Total Billed Treatment Time: 26 Total Billed Treatment Visit, Gait, Ex DAVID PAULINO PT Jun 12, 2022 09:18
[2022-06-12] MEDS: FEBUXOSTAT 40 MG TABLET PO SCH (10:40)
[2022-06-12 10:59] VITALS: BP 105/69
== END 2022-06-12 11:18 | disposition home or self-care (01) ==
LOC: SDC 06:04 → 4TH 11:44 → SDC 06-12 11:18
PROVIDERS: ATTEND Orthopaedic Surgery
DX: M17.0 Bilateral primary osteoarthritis of knee (principal); F17.210 Nicotine dependence, cigarettes, uncomplicated; Z28.310 Unvaccinated for COVID-19
CPT/HCPCS: 27447; 73560; 85014 ×2; 85018 ×2; 97110 ×2; 97116 ×2; 97162; 97165; 97535; C1713; C1776 ×4; 36415

== ENCOUNTER → 2022-07-16 | Outpatient (CLI) | payer MEDICARE, MEDICAID ==
[~2022-07-16] MED LIST changes: +ASPI-1238 PO; +IRON150C3 PO; +OXC5T PO
--- NOTE | 2022-07-16 18:57 | Diagnostic Imaging Report ---
Indication: Right knee replacement. Time of Exam: 9:18 AM Correlation is made with prior radiograph from 06/10/2022. Postoperative changes total knee arthroplasty are noted. Prosthetic elements appear to be in good position without fracture or loosening. There may be a small amount of joint fluid present. Bony structures are intact. IMPRESSION: Postop changes total knee arthroplasty without acute bony abnormality or hardware complication. There is some suprapatellar fullness noted, which may indicate some joint effusion. Dictated by: Dictated on workstation # [id number]
== END ==
LOC: ORTHO 10:30
PROVIDERS: ATTEND Orthopaedic Surgery
DX: M25.561 Pain in right knee (principal); Z96.651 Presence of right artificial knee joint
CPT/HCPCS: 73560

== ENCOUNTER → 2022-08-27 | Outpatient (CLI) | payer MEDICARE, MEDICAID | LOC: ORTHO 09:27 | PROVIDERS: ATTEND Orthopaedic Surgery | DX: Z47.89 Encounter for other orthopedic aftercare (principal) ==

== ENCOUNTER → 2023-01-23 | Outpatient (CLI) | payer MEDICARE, MEDICAID | LOC: ORTHO 08:56 | PROVIDERS: ATTEND Orthopaedic Surgery | DX: M17.12 Unilateral primary osteoarthritis, left knee (principal) | CPT/HCPCS: 20610; G0463; 99213 ==